=== PATIENT | male | born 1975 | race Caucasian/White ===

== ENCOUNTER 2017-05-31 18:13 | Emergency (ER) | payer SELFPAY | END 2017-05-31 18:53 | disposition left against medical advice (07) | LOC: EME 18:13 | DX: R07.9 Chest pain, unspecified (principal); Z53.21 Procedure and treatment not carried out due to patient leaving prior to being seen by health care provider | CPT/HCPCS: 93005 ==

== ENCOUNTER 2017-10-18 00:21 | Emergency (ER) | payer BC ==
[2017-10-18 00:40] LABS: BASOPHIL (%) 0.7 % (0-1); BASOPHIL COUNT 0.1 K/uL (0-0.1); EOSINOPHIL (%) 2.5 % (0-5); EOSINOPHIL COUNT 0.2 K/uL (0-0.3); HEMATOCRIT 35.6 % (38.0-50.0); HEMOGLOBIN 12.5 G/DL (12.5-16.6); IMMATURE GRANULOCYTE (%) 0.1 % (0.0-0.7); LYMPHOCYTE (%) 51.5 % (15-42); LYMPHOCYTE COUNT 4.7 K/uL (1.0-2.8); MCH 32.3 PG (29.0-34.0); MCHC 35.1 G/DL (30.0-36.0); MONOCYTE (%) 5.8 % (3-12); MONOCYTE COUNT 0.5 K/uL (0-0.8); NEUTROPHIL (%) 39.4 % (45-76); NEUTROPHIL COUNT 3.6 K/uL (1.8-6.4); PLATELET COUNT 209 K/uL (156-360); RBC DIS.WIDTH-SD 40.5 % (39-53); RED BLOOD COUNT 3.87 M/uL (4.00-5.50); WHITE BLOOD COUNT 9.1 K/uL (4.1-10.2)
[2017-10-18 00:45] LABS: INTER. NORMALIZED RATIO 0.9
[2017-10-18 00:48] LABS: PTT 31.5 SEC (25-37)
[2017-10-18 00:59] LABS: TROP-I INTERPRETATION NEGATIVE; TROPONIN-I < 0.01 ng/mL (0.0-0.30)
[2017-10-18 01:03] LABS: AMYLASE 101 IU/L (1-118); CHLORIDE 104 mEq/L (99-109); POTASSIUM 4.1 mEq/L (3.7-5.4); SODIUM 137 mEq/L (136-147)
[2017-10-18 01:04] LABS: GLUCOSE 88 mg/dL (70-99)
[2017-10-18 01:08] LABS: GFR ESTIMATE (CALCULATED) > 59 mL/min/ (58.99-99999); SERUM ETHYL ALCOHOL < 10 mg/dL
[2017-10-18 01:09] LABS: UREA NITROGEN (BUN) 29 mg/dL (9-23)
[2017-10-18 01:11] LABS: LIPASE 62 U/L (1.0-51.0)
== END 2017-10-18 02:50 | disposition short-term general hospital (02) ==
LOC: TRA 00:21
PROVIDERS: Emergency Medicine
DX: S14.159A Other incomplete lesion at unspecified level of cervical spinal cord, initial encounter (principal); S06.9X9A Unspecified intracranial injury with loss of consciousness of unspecified duration, initial encounter; G81.91 Hemiplegia, unspecified affecting right dominant side; R40.2412 Glasgow coma scale score 13-15, at arrival to emergency department; R53.1 Weakness; M54.5 Low back pain; Y00.XXXA Assault by blunt object, initial encounter; F17.210 Nicotine dependence, cigarettes, uncomplicated
CPT/HCPCS: 70450; 71260; 72125; 72129; 72132; 74177; 80048; 81003; 82150; 83690; 84484; 85025; 85610; 85730; 86850; 86900; 86901; 93005; 99281; 99285; G0480; J2405; J3010

== ENCOUNTER 2018-01-01 14:54 | Emergency (ER) | payer BC ==
[~2018-01-01] VITALS: Ht 190.5 cm; Wt 77.7 kg
[2018-01-01] MEDS ORDERED: MOTRIN600 MG PO (17:07)
[2018-01-01] MEDS ORDERED: ULTRAM50 MG PO (17:07)
[2018-01-01 17:28] VITALS: BP 120/78
== END 2018-01-01 17:29 | disposition home or self-care (01) ==
LOC: EME 14:54
DX: M71.21 Synovial cyst of popliteal space [Baker], right knee (principal)
CPT/HCPCS: 73564; 93971; 99281; 99283